=== PATIENT | male | born 1995 | race Caucasian/White ===

== ENCOUNTER 2016-11-10 08:39 | Emergency (ER) | payer OTHER ==
[~2016-11-10] VITALS: Ht 172.7 cm; Wt 74.8 kg
[2016-11-10 08:55] VITALS: BP 141/101
--- NOTE | 2016-11-10 09:00 | NUR ---
Patient ambulated to bed 03.
--- NOTE | 2016-11-10 09:00 | NUR ---
Luisa xiong in [facility] - 11/10/16 at 0910 by LUDIN Patient to bed .
--- NOTE | 2016-11-10 09:10 | NUR ---
PT PRESENTS TO ER W/C/O LEFT 4TH FINGER PAIN. STS ACCIDENTLY CRUSHED IT AT WORK.
--- NOTE | 2016-11-10 09:21 | NUR ---
CRIS MOLINA) EVAL PATIENT AT BEDSIDE.
--- NOTE | 2016-11-10 09:22 | NUR ---
X-Ray at bedside.
[2016-11-10] MEDS ORDERED: LIDOCAINE 1% ED 50 ML ONE (09:45)
[2016-11-10] MEDS ORDERED: LIDOCAINE 1% 500 MG/50 ML VIAL INJ ONE (09:50)
[2016-11-10] MEDS ORDERED: NEOMYCIN/POLYMYXIN/BACITRACIN 0.9 GM/1 PKT TP ONE (10:04)
--- NOTE | 2016-11-10 10:29 | NUR ---
Patient discharged with v/s stable. Written and verbal after care instructions given and explained. Patient alert, oriented and verbalized understanding of instructions. Ambulatory with steady gait. All questions addressed prior to discharge. ID band removed. Patient advised to follow up with PMD. Rx of norco and motrin given. Patient educated on indication of medication including possible reaction and side effects. Opportunity to ask questions provided and answered.
[2016-11-10 10:43] VITALS: BP 120/82
== END 2016-11-10 10:29 | disposition home or self-care (01) ==
LOC: MED 08:39
DX: S60.142A Contusion of left ring finger with damage to nail, initial encounter (principal); W22.8XXA Striking against or struck by other objects, initial encounter; Y93.89 Activity, other specified; Y92.89 Other specified places as the place of occurrence of the external cause; Y99.8 Other external cause status
CPT/HCPCS: 11740; 73130; 99284; J2001

== ENCOUNTER 2017-06-01 22:44 | Emergency (ER) | payer OTHER ==
[~2017-06-01] VITALS: Ht 175.3 cm; Wt 70.3 kg
[2017-06-01 22:47] VITALS: BP 140/69
--- NOTE | 2017-06-02 00:35 | NUR ---
PATIENT LEFT WITHOUT BEING SEEN BY DR. BATISTA. NO FURTHER CARE PROVIDED FOR PATIENT.
== END 2017-06-02 00:35 | disposition left against medical advice (07) ==
LOC: MED 22:44
DX: M25.561 Pain in right knee (principal)
CPT/HCPCS: 73562; 99281